=== PATIENT | male | born 1940 | race Caucasian/White ===

== ENCOUNTER 2018-08-15 12:10 | Inpatient (IN) | payer MEDICARE, OTHER ==
[~2018-08-15 12:10] MED LIST: ISOVUE-370 76%-LOCM 1 ML ONE
[2018-08-15 12:31] LABS: #Basophils 0.1 thou/uL (0.0-0.2); #Eosinphils 0.1 thou/uL (0.0-0.7); #Lymphocytes 3.4 thou/uL (1.20-3.40); #Monocytes 0.6 thou/uL (0.11-0.59); #Neutrophils 3.8 thou/uL (1.40-6.50); %Eosinophils 1.3 % (0.0-10.0); %Lymphocytes 42.1 % (21.0-51.0); %Monocytes 7.5 % (0.0-10.0); Hemoglobin 14.1 g/dL (14.0-18.0); Mean Corpuscular HGB CONC 32.3 g/dL (32.0-36.0); Mean Corpuscular Volume 95.7 fL (78.0-98.0); Mean Platelet Volume 7.2 fL (7.4-10.4); Platelet Count 235 thou/uL (130-400); RBC Distribution Width 12.6 % (11.5-14.5); Red Blood Cell (RBC) Count 4.56 mill/uL (4.70-6.10)
[2018-08-15 12:41] LABS: INR-International Normal Ratio 1.1; PTT 26.2 SEC (22.9-36.1); Prothrombin Time 14.1 SEC (12.0-14.7)
[2018-08-15 12:46] LABS: ALT (SGPT) 19 U/L (8-55); AST (SGOT) 18 U/L (5-34); Albumin 4.2 g/dL (3.4-4.8); Alkaline Phosphatase 88 U/L (40-150); Anion Gap 15 mmol/L (10-20); BUN (Urea Nitrogen) 18 mg/dL (8.4-25.7); Bilirubin, Total 0.4 mg/dL (0.2-1.2); CK (CPK) 80 U/L (30-200); Calc. Creatinine Clearance 0 mL/min (70-130); Calcium 9.3 mg/dL (7.8-10.44); Carbon Dioxide 21 mmol/L (23-31); Chloride 107 mmol/L (98-107); Estimated GFR-MDRD 77; Globulin 3.1 g/dL (2.4-3.5); Glucose 120 mg/dL (83-110); Potassium 4.5 mmol/L (3.5-5.1); Protein, Total 7.3 g/dL (5.8-8.1); Sodium 138 mmol/L (136-145)
[2018-08-15 12:47] LABS: Acetaminophen Less than 6.0 mcg/mL (10.0-30.0); Alcohol Less than 10 mg/dL (Less than 10); Salicylate Less than 8.0 mg/dL (15.0-30.0)
[2018-08-15 13:01] LABS: CKMB 1.5 ng/mL (0-6.6)
[2018-08-15 13:17] LABS: Bilirubin Negative (Negative); Blood, Urine Moderate (Negative); Clarity CLEAR (Clear); Glucose, Urine (Dipstick) Negative (Negative); Leukocyte Small (Negative); Nitrite Negative (Negative); Protein, Urine (Dipstick) Negative (Neg-Trace); Specific Gravity, Urine 1.018 (1.002-1.036); Urobilinogen 0.2 mg/dL (0.2-1.0); pH, Urine 6.5 (5.0-9.0)
[2018-08-15 13:19] LABS: Bacteria/HPF None Seen HPF (None Seen); Hyaline Casts/LPF 0-3 HYALINE CAST LPF (0-3 Hyaline); Pathc Cast-AUWi Flag 0.81 (0-2.49); Squamous Epithelial 0-3 HPF (0-3)
--- NOTE | 2018-08-15 13:22 | CT ---
CT BRAIN PERFORMED WITHOUT CONTRAST ENHANCEMENT: Date: 08/15/18 HISTORY: Slurred speech. FINDINGS: The ventricular and cisternal system is within normal limits. There are no signs of intracerebral hem orrhage or extra-axial fluid collections. The mastoid air cells and visualized sinuses are clear. IMPRESSION: No acute intracranial abnormalities. Findings telephoned to the emergency room at 1225 hours. CODE CR. POS: CHEY
[2018-08-15 13:26] LABS: Amphetamine Not Detected (NotDetected); Barbiturates Screen Not Detected (NotDetected); Benzodiazepine Screen Not Detected (NotDetected); Cocaine Metabolite Screen Not Detected (NotDetected); Medtox Control Line Valid? VALID (VALID); Medtox Reader # READER 4; Methadone Not Detected (NotDetected); Methamphetamine Not Detected (NotDetected); Opiate Screen Not Detected (NotDetected); Oxycodone Screen Not Detected (NotDetected); Phencyclidine (PCP) Not Detected (NotDetected); THC/Cannabinoid Screen Not Detected (NotDetected); Tricyclic Screen Not Detected (NotDetected)
[2018-08-15] MEDS ORDERED: Aspirin 325 MG TAB ONE (13:37)
--- NOTE | 2018-08-15 14:14 | CT ---
CTA HEAD WITH CONTRAST: Date 08/15/18 Multiple axial tomograms obtained through head following angio protocol with multiplanar reconstructi ons and 3D postprocessing. INDICATION: Stroke protocol. FINDINGS: The intracranial internal carotid arteries are patent. There are atherosclerotic changes with calcifi cations seen in the cavernous portion of both ICAs without evidence of significant stenosis apparent. M1 segments of both middle cerebrals appear patent and symmetric. M2 and M3 branches appear symmetri c. The basilar artery is patent. Posterior cerebral arteries are patent. IMPRESSION: Unremarkable CTA head. CTA NECK: Multiple axial tomograms obtained through neck following angio protocol with multiplanar reconstructi on and 3D postprocessing. HISTORY: Stroke. FINDINGS: Origin of arch vessels unremarkable. Common carotid artery is unremarkable. Atherosclerotic changes are seen at both bulbs and both proximal ICAs; however, no significant stenos is identified in either ICA. Vertebral arteries are patent and symmetric. IMPRESSION: Mild atherosclerotic changes seen in both carotid bulbs. No significant stenosis identified. POS: OFF
[2018-08-15] MEDS ORDERED: Bisacodyl 5 MG TAB PO PRN (15:14)
[2018-08-15 15:32] LABS: Troponin I 0.018 ng/mL (< 0.028)
[2018-08-15 16:00] VITALS: BMI 32.1
--- NOTE | 2018-08-15 16:01 | HP ---
PRIMARY CARE PROVIDER: LATONYA Ford-C CHIEF COMPLAINT: Difficulty speaking. HISTORY OF PRESENT ILLNESS: Mr. Bo is a pleasant 78-year-old gentleman, who was seen at [facility] on August 15, 2018. He was fishing around 10:30 a.m. today. After that, he went into his house. His noticed that he was drooling. He was unable to speak. Since then, he has been able to say few words, but is still having difficulty speaking. He is answering questions by nodding or shaking head. He reports that he knows what he wants to say, but he is having difficulty saying it. He denies any chest pain or shortness of breath. He denies any vision changes. He denies any nausea or vomiting. REVIEW OF SYSTEMS: All other systems reviewed and found to be negative. PAST MEDICAL HISTORY: Hypertension and biliary pancreatitis. PAST SURGICAL HISTORY: Cholecystectomy. FAMILY HISTORY: No family history of cerebrovascular accident. SOCIAL HISTORY: The patient denies tobacco use, alcohol use, or recreational drug use. CODE STATUS: I discussed his code status with both the patient and . The patient is full code. ALLERGIES: NO KNOWN DRUG ALLERGIES. CURRENT MEDICATIONS: 1. Lisinopril/hydrochlorothiazide 20/25 mg daily. 2. Aspirin 325 mg daily. PHYSICAL EXAMINATION: GENERAL: On examination, Mr. Bo is awake and alert, not in acute distress. VITAL SIGNS: Blood pressure is 174/75, pulse 78, respiratory rate 25, and oxygen saturation 97% on room air. He is afebrile. EYES: No scleral icterus, no conjunctival pallor. ENT: Moist mucosal membranes. No oropharyngeal erythema or exudates. NECK: Supple, nontender, trachea is midline. RESPIRATORY: Accessory muscles of breathing are not active. Movements are symmetric bilaterally. Lungs are clear to auscultation without wheeze, rhonchi, or crepitations. CARDIOVASCULAR: S1 and S2 are heard, regular. Peripheral pulses palpable. No carotid bruit. No pericardial rub. NEUROLOGIC: The patient has expressive aphasia. Otherwise, cranial nerves 2 through 12 are intact. No focal motor or sensory deficits. Power is 5/5 in all 4 extremities. Deep tendon reflexes are 2+, plantars downgoing bilaterally. MUSCULOSKELETAL: Power is 5/5 in all 4 extremities. SKIN: No rashes or subcutaneous nodules. LYMPHATIC: No cervical lymphadenopathy. PSYCHIATRIC: Normal mood, normal affect, the patient is oriented to person, place, and time. LABORATORY DATA: Mr. Bo' labs and investigations were reviewed. A 12-lead electrocardiogram shows normal sinus rhythm with premature supraventricular complexes. CT scan of the brain did not show any acute intracranial abnormalities. CT angiography of the neck and [place] of [place] showed mild atherosclerotic changes in both carotid bulbs, no significant stenosis. CTA head was unremarkable. He has unremarkable CBC, INR 1.1, normal sodium, normal potassium, troponin I initially elevated at 0.093, subsequently trending down into normal range at 0.018, unremarkable liver profile, normal creatinine, urinalysis positive for small amount of leukocyte esterase and moderate amount of blood and negative urine drug screen. ASSESSMENT AND PLAN: Mr. Bo is a pleasant 78-year-old gentleman, who was seen at [facility] on August 15, 2018. His problem list includes: 1. Expressive aphasia: Mr. Bo is presenting with expressive aphasia, most likely secondary to ischemic cerebrovascular accident. He will be admitted to the hospital for further management. We will check 2D echocardiogram and MRI of the brain. We will consult Neurology Service. He is already on aspirin, we will add Plavix and await Neurology Service opinion. 2. Hypertension: We will resume home medications, monitor vital signs and titrate antihypertensives as needed. 3. Elevated troponin I: The patient's troponin was initially in the indeterminate range, subsequently trended into normal range. The patient denies having any chest pain. We will monitor on telemetry. Many thanks for allowing me to participate in your patient's care. Please feel free to contact me with any questions or concerns. LEVEL OF RISK: Moderate. LEVEL OF COMPLEXITY: Moderate. Job ID: [id number]
--- NOTE | 2018-08-15 16:51 | MRI ---
MRI BRAIN WITHOUT CONTRAST: HISTORY: Slurred speech CORRELATION: CT scan from 08/15/2018. FINDINGS: A small focus of restricted diffusion is seen in the left insular cortex There are multiple foci of T 2 prolongation in the periventricular white matter, consistent with chronic small vessel ischemic disease. The ventricular size is appropriate and the basilar cisterns are patent. No evidence of hemorrhage, midline shift or abnormal extra-axial fluid collections is seen. The visualized paranasal sinuses and mastoid air cells are well-aerated. IMPRESSION: Small acute left insular infarction.
[2018-08-15 18:44] LABS: Troponin I 0.016 ng/mL (< 0.028)
[2018-08-15] MEDS: Atorvastatin Calcium 40 MG TAB PO SCH (20:11)
[2018-08-16 06:01] LABS: Anion Gap 13 mmol/L (10-20); BUN (Urea Nitrogen) 12 mg/dL (8.4-25.7); Calc. Creatinine Clearance 91 mL/min (70-130); Calcium 9.1 mg/dL (7.8-10.44); Carbon Dioxide 20 mmol/L (23-31); Cardiac Risk 5.6 (Less than 4.5); Chloride 108 mmol/L (98-107); Cholesterol 174 mg/dl (< 200 Desired); Estimated GFR-MDRD 83; Glucose 104 mg/dL (83-110); HDL Cholesterol 31 mg/dL (>60 Neg Risk); Potassium 4.3 mmol/L (3.5-5.1); Sodium 137 mmol/L (136-145)
[2018-08-16 06:25] LABS: Band 2 % (5-11); Eosinophils 1 % (0-10); Hemoglobin 14.3 g/dL (14.0-18.0); Lymphocytes 26 % (21-51); MDiff Complete? YES; Mean Corpuscular HGB CONC 32.9 g/dL (32.0-36.0); Mean Corpuscular Hemoglobin 32.1 pg (27.0-31.0); Mean Corpuscular Volume 97.4 fL (78.0-98.0); Mean Platelet Volume 7.5 fL (7.4-10.4); Monocytes 8 % (0-10); Neutrophil 61 % (42-75); Platelet Count 233 thou/uL (130-400); Platelet Morphology Comment Appears Adequate; RBC Distribution Width 12.6 % (11.5-14.5); Reactive Lymphocytes 1 % (0-10); Red Blood Cell (RBC) Count 4.46 mill/uL (4.70-6.10); White Blood Cell (WBC) Count 10.5 thou/uL (4.8-10.8)
[2018-08-16 07:24] LABS: LDL Cholesterol, Calculated 92 mg/dL; Triglycerides 256 mg/dL (Less than 150)
[2018-08-16] MEDS: Enoxaparin Sodium 40 MG/0.4 ML SYRINGE SC SCH (09:13)
[2018-08-16] MEDS: Clopidogrel Bisulfate 75 MG TAB PO SCH (09:14)
[2018-08-16] MEDS: Aspirin 325 mg Enteric Coated Tablet PO SCH (09:14)
--- NOTE | 2018-08-16 12:18 | PDOC.PN ---
- Subjective Encounter Start Date: 08/16/18 Encounter Start Time: 07:00 Pt seen for followup re: ischemic CVA. Still has difficulty speaking. - Objective Resuscitation Status - Order Detail: 08/15/18 15:14 Resuscitation Status Routine Resuscitation Status: FULL: Full Resuscitation Discussed with: patient and DANGELO Reviewed: Yes Vital Signs & Weight: Vital Signs (12 hours) Temp Pulse Resp BP Pulse Ox 08/16/18 08:00 98 08/16/18 07:56 99 F 62 20 168/77 H 98 08/16/18 04:00 98.5 F 76 18 173/79 H 97 Weight Weight 205 lb I&O: 08/15/18 08/16/18 08/17/18 06:59 06:59 06:59 Intake Total 860 Balance 860 Result Diagrams: 08/16/18 05:18 08/16/18 05:18 Additional Labs: Accuchecks 08/15/18 12:16 POC Glucose 130 H EKG Reviewed by me: Yes (Tele: NSR) Phys Exam - Physical Examination Obese HEENT: moist MMs, sclera anicteric, oral pharynx no lesions, 2+ tonsils Neck: no nodes, no JVD, supple, full ROM Respiratory: clear to auscultation bilateral Cardiovascular: RRR, no rub S1, S2 Gastrointestinal: soft, non-tender, no distention, positive bowel sounds Neurological: moves all 4 limbs expressive aphasia Psychiatric: normal affect Dx/Plan (1) Ischemic cerebrovascular accident (CVA) Code(s): I63.9 - CEREBRAL INFARCTION, UNSPECIFIED Status: Acute Comment: continue aspirin, Plavix and statin (2) HTN (hypertension) Code(s): I10 - ESSENTIAL (PRIMARY) HYPERTENSION Status: Chronic Comment: monitor vital signs and titrate antihypertensives as needed - Plan * . Review of Systems - Review of Systems Constitutional: negative: fever, chills, sweats, weakness, malaise Respiratory: negative: Cough, Shortness of Breath, SOB with Excertion, Pleuritic Pain, Wheezing Cardiovascular: negative: chest pain, palpitations, orthopnea, paroxysmal nocturnal dyspnea, edema, light headedness Gastrointestinal: negative: Nausea, Vomiting, Abdominal Pain, Diarrhea, Constipation, Melena, Hematochezia Neurological: Change in Speech. negative: Weakness, Numbness, Incoordination, Confusion, Seizures - Medications/Allergies Allergies/Adverse Reactions: Allergies Allergy/AdvReac Type Severity Reaction Status Date / Time No Known Drug Allergies Allergy Verified 08/15/18 15:57 Medications: Current Medications Aspirin (Ecotrin) 325 mg PO DAILY [facility] Last Admin: 08/16/18 09:14 Dose: 325 mg Atorvastatin Calcium (Lipitor) 40 mg PO HS [facility] Last Admin: 08/15/18 20:11 Dose: 40 mg Bisacodyl (Dulcolax) 10 mg PO DAILYPRN PRN PRN Reason: Constipation Clopidogrel Bisulfate (Plavix) 75 mg PO DAILY [facility] Last Admin: 08/16/18 09:14 Dose: 75 mg Enoxaparin Sodium (Lovenox) 40 mg SC 0900 [facility] Last Admin: 08/16/18 09:13 Dose: 40 mg Sodium Chloride (Flush - Normal Saline) 10 ml IVF PRN PRN PRN Reason: Saline Flush
[2018-08-16] MEDS: Acetaminophen 325 MG TAB PO PRN (18:54)
[2018-08-16] MEDS: Atorvastatin Calcium 40 MG TAB PO SCH (21:12)
--- NOTE | 2018-08-16 23:41 | CON ---
DATE OF CONSULTATION: CHIEF COMPLAINT: Aphasia. HISTORY OF PRESENT ILLNESS: The patient and his gave me medical history. The patient was fishing at 10:00 a.m. yesterday. He went into the house drooling. He could not talk. He had no weakness, numbness, or vision symptoms and he was brought immediately to the hospital by his family. The patient was found to have small left insular infarct. PREVIOUS MEDICAL HISTORY: The patient has hypertension and biliary pancreatitis for which he had gallbladder removals. MEDICATIONS: Current medicines at home, he takes lisinopril and aspirin on a daily basis. PREVIOUS SURGICAL HISTORY: He had cholecystectomy. FAMILY HISTORY: He has 2 brothers with coronary artery disease; three sisters, one sister has nonalcoholic cirrhosis of liver, one sister from brain cancer. His father at 75 from lung cancer. Mom at 82 from pancreatic cancer. SOCIAL HISTORY: He never smokes. He has occasionally been drinking a beer or two. He is a retired construction project manager. REVIEW OF SYSTEMS: Unable to obtain due to aphasia. CURRENT MEDICATIONS: Noted per chart. LABORATORY DATA: White count 10.5, hemoglobin 14.3, hematocrit 43.5, platelet count 233. Chemistry; sodium 137, potassium 4.3, chloride 108, BUN 12, creatinine 0.89, triglyceride 256, cholesterol 174, LDL 92, HDL 31,. Urine blood is moderate. Urine tox screen is negative." PTT 26.2, INR 1.1. His MRI of the brain as noted. He has a small left insular infarct which is acute. CT angiogram of the head and neck was also reviewed and there was mild atherosclerotic changes in both carotid bulbs without any significant stenosis. Echocardiogram was also completed, which was within normal limits. PHYSICAL EXAMINATION: VITAL SIGNS: Blood pressure was 177/75, pulse 59, temperature 98. GENERAL APPEARANCE: Well-built, well-nourished, very pleasant gentleman who is unable to talk. He has difficulty even with phonation and has hoarse voice and he has both the expressive and receptive aphasia. CHEST: Clear vesicular breathing. CARDIOVASCULAR: S1, S2 heard. No murmurs. ABDOMEN: Soft and nontender. No organomegaly noted. NEUROLOGIC: Motor; bulk normal, tone normal. Strength 5/5 in upper and lower extremities. Muscle groups tested are iliopsoas, hamstrings, quadriceps, ankle dorsiflexion, plantar flexion, deltoid, biceps, triceps, wrist extension and flexion, and finger extension and flexion. Deep tendon reflexes 2+ throughout. Cranial nerve examination; normal extraocular movements. Pupils are 3-4 mm, reactive. Tongue midline. No atrophy noted. Normal sensation of face bilaterally. Normal hearing bilaterally. He has facial droop on the right side. Sensory; unreliable due to difficulty with his receptive aphasia as well. Cerebellar; normal [id number] and [id number]. IMPRESSION: The patient is a 78-year-old man with hypertension and family history of cancer and hypercholesterolemia based on our lab workup. He had sudden onset aphasia yesterday without any vaso-occlusive disease and he did not receive any tPA due to presentation and also lack of any vascular occlusion. His examination shows both expressive and receptive aphasia and he has intact strength and sensory and cerebellar exam. At this time, his diagnosis is most consistent with acute stroke, likely small-vessel ischemic disease in nature because of lack of any abnormal findings in the carotid arteries or on echocardiogram. RECOMMENDATIONS: Please add Plavix to his treatment regimen along with aspirin and continue statin for stroke prophylaxis. Neurology will see him as needed. He needs speech therapy consultation plus plans for rehab. Job ID: [id number]
[2018-08-17] MEDS: Clopidogrel Bisulfate 75 MG TAB PO SCH (09:05)
[2018-08-17] MEDS: Aspirin 325 mg Enteric Coated Tablet PO SCH (09:06)
[2018-08-17] MEDS: Enoxaparin Sodium 40 MG/0.4 ML SYRINGE SC SCH (09:07)
--- NOTE | 2018-08-17 11:51 | RAD ---
XR Ba Swallow W/Speech Therap History: [ Dysphagia, unspecified R13.10 Feeding difficulties R63.3] Comparison: None. Findings: Multiple consistencies contrast was administered to the patient via the speech pathologist. There is deep penetration with multiple contrast consistencies. Impression: Deep penetration with multiple contrast consistencies. Please see speech pathologist's re port for details of the exam
[2018-08-17] MEDS: Acetaminophen 325 MG TAB PO PRN (13:51)
[2018-08-17] MEDS: Diltiazem 125 MG in Sodium Chloride 0.9% 100 ML IVPB SCH (13:52)
--- NOTE | 2018-08-17 15:14 | PDOC.PN ---
- Subjective Encounter Start Date: 08/17/18 Encounter Start Time: 07:00 Pt seen for followup re: ischemic CVA. Occasionally able to say short sentences with difficulty. - Objective Resuscitation Status - Order Detail: 08/15/18 15:14 Resuscitation Status Routine Resuscitation Status: FULL: Full Resuscitation Discussed with: patient and DANGELO Reviewed: Yes Vital Signs & Weight: Vital Signs (12 hours) Temp Pulse Resp BP BP Pulse Ox 08/17/18 13:05 112 H 18 142/87 H 97 08/17/18 11:34 98.1 F 61 16 160/76 H 96 08/17/18 08:59 94 L 08/17/18 07:49 98 F 62 16 165/92 H 94 L 08/17/18 04:00 97.5 F L 64 18 146/70 H 96 Weight Admit Weight 205 lb Weight 205 lb I&O: 08/16/18 08/17/18 08/18/18 06:59 06:59 06:59 Intake Total 860 1160 Balance 860 1160 Result Diagrams: 08/16/18 05:18 08/16/18 05:18 EKG Reviewed by me: Yes (Tele: NSR) Phys Exam - Physical Examination Obese HEENT: moist MMs Neck: supple Respiratory: clear to auscultation bilateral Cardiovascular: RRR Gastrointestinal: soft Neurological: moves all 4 limbs Psychiatric: normal affect Dx/Plan (1) Ischemic cerebrovascular accident (CVA) Code(s): I63.9 - CEREBRAL INFARCTION, UNSPECIFIED Status: Acute Comment: on aspirin, Plavix and statin (2) Aphasia due to acute cerebrovascular accident (CVA) Code(s): I63.9 - CEREBRAL INFARCTION, UNSPECIFIED; R47.01 - APHASIA Status: Acute Comment: for outpt speech therapy (3) HTN (hypertension) Code(s): I10 - ESSENTIAL (PRIMARY) HYPERTENSION Status: Chronic Comment: Improved control - Plan * . Review of Systems - Review of Systems Constitutional: negative: fever, chills, sweats, weakness, malaise Cardiovascular: negative: chest pain, palpitations, orthopnea, paroxysmal nocturnal dyspnea, edema, light headedness Neurological: Change in Speech - Medications/Allergies Allergies/Adverse Reactions: Allergies Allergy/AdvReac Type Severity Reaction Status Date / Time No Known Drug Allergies Allergy Verified 08/15/18 15:57 Medications: Current Medications Acetaminophen (Tylenol) 650 mg PO Q6H PRN PRN Reason: Headache/Fever or Pain Last Admin: 08/17/18 13:51 Dose: 650 mg Aspirin (Ecotrin) 325 mg PO DAILY [facility] Last Admin: 08/17/18 09:06 Dose: 325 mg Atorvastatin Calcium (Lipitor) 40 mg PO HS [facility] Last Admin: 08/16/18 21:12 Dose: 40 mg Bisacodyl (Dulcolax) 10 mg PO DAILYPRN PRN PRN Reason: Constipation Clopidogrel Bisulfate (Plavix) 75 mg PO DAILY [facility] Last Admin: 08/17/18 09:05 Dose: 75 mg Enoxaparin Sodium (Lovenox) 40 mg SC 0900 [facility] Last Admin: 08/17/18 09:07 Dose: 40 mg Diltiazem HCl 125 mg/ Sodium (Chloride) 125 mls @ 5 mls/hr IVPB INF [facility] Last Admin: 08/17/18 13:52 Dose: 125 mls Sodium Chloride (Flush - Normal Saline) 10 ml IVF PRN PRN PRN Reason: Saline Flush Last Admin: 08/16/18 21:12 Dose: 10 ml
--- NOTE | 2018-08-17 17:28 | CON ---
DATE OF CONSULTATION: REASON FOR CONSULTATION: Recent CVA and atrial fibrillation. HISTORY OF PRESENT ILLNESS: Mr. Bo is a 78-year-old gentleman, who recently presented with recent stroke. He has had aphasia. He was found to be in normal sinus rhythm and developed atrial fibrillation with RVR. He is currently asymptomatic. The patient has no previous history of underlying coronary artery disease. He has no history of palpitations, tachycardia, bradycardia, syncope, or presyncope. PAST MEDICAL HISTORY: Hypertension, previous biliary pancreatitis, and cholecystectomy. FAMILY HISTORY: Positive for CAD. SOCIAL HISTORY: No current tobacco or alcohol use. HOME MEDICATIONS: Per chart, have been reviewed. REVIEW OF SYSTEMS: A 10-point review of systems is reviewed and as above, otherwise negative. PHYSICAL EXAMINATION: GENERAL: Patient is a pleasant male, who is in no acute distress. The patient appears their stated age. VITAL SIGNS: Blood pressure 149/77, pulse 94, temperature afebrile. NEUROLOGIC: The patient is alert and oriented x3 with no focal neurologic deficits. HEENT: Sclerae without icterus. Mouth has moist mucous membranes with normal pallor. NECK: No JVD. Carotid upstroke brisk. No bruits bilaterally. LUNGS: Clear to auscultation with unlabored respirations. BACK: No scoliosis or kyphosis. CARDIAC: Irregularly irregular with normal S1 and S2. No S3 or S4 noted. No significant rubs, murmurs, thrills, or gallops noted throughout the precordium. PMI is not displaced. There is no parasternal heave. He is currently on IV Cardizem ABDOMEN: Soft, nontender, nondistended. No peritoneal signs present. No hepatosplenomegaly. No abnormal striae. EXTREMITIES: 2+ femoral and 2+ dorsalis pedis pulses. No cyanosis, clubbing, or edema. SKIN: No gross abnormalities. PERTINENT LABORATORY DATA: Hemoglobin 14.3. Creatinine 0.89. Peak troponin 0.093. Echo with doppler, LVEF 50% to 55%. IMPRESSION: 1. Recent stroke. 2. New onset atrial fibrillation with rapid ventricular response. RECOMMENDATIONS: Mr. Bo likely has paroxysmal atrial fibrillation with his first presentation of atrial fibrillation with a stroke. At this point, recommend anticoagulation therapy. From my standpoint, we would not require aspirin or Plavix. We will leave it to the discretion of Neurology. We would recommend Eliquis at 5 mg one p.o. b.i.d. We will also recommend p.o. Cardizem. We will start 60 mg one p.o. q.6 hours. We will try and titrate down his IV Cardizem. Job ID: [id number]
[2018-08-17] MEDS: Atorvastatin Calcium 40 MG TAB PO SCH (22:39)
--- NOTE | 2018-08-18 00:19 | PDOC.CTH ---
Cardiology Progress Note - Subjective Doing better overall. tolerating PO CCB. - Objective Vital Signs Temp Pulse Resp BP BP Pulse Ox 08/18/18 00:00 97.6 F 99 18 138/69 95 08/17/18 20:00 97.9 F 106 H 16 130/70 95 08/17/18 15:23 98.3 F 94 16 149/77 H 95 08/17/18 13:05 112 H 18 142/87 H 97 Admit Weight 205 lb Weight 205 lb 08/16/18 08/17/18 08/18/18 06:59 06:59 06:59 Intake Total 860 1160 500 Balance 860 1160 500 - Physical Examination General/Neuro: alert & oriented x3, NAD Neck: no JVD present Lungs: unlabored respirations Heart: other: (irr) Abdomen: NT/ND, soft Extremities: + femoral B - Telemetry Telemetry Rhythm: irr - Labs Result Diagrams: 08/18/18 16:12 08/18/18 16:12 Troponin/CKMB CK-MB (CK-2) 1.5 ng/mL (0-6.6) 08/15/18 12:13 Troponin I 0.016 ng/mL (< 0.028) 08/15/18 18:13 - Assessment/Plan Afib CVA INcrease POP CCB and decrease IV CCB Add IV digoxin ACT
[2018-08-18] MEDS: Apixaban 5 MG TAB PO SCH ×2 (09:15→20:56)
[2018-08-18] MEDS: Diltiazem 125 MG in Sodium Chloride 0.9% 100 ML IVPB SCH (12:31)
--- NOTE | 2018-08-18 13:15 | PDOC.PN ---
- Subjective Encounter Start Date: 08/18/18 Encounter Start Time: 07:00 Pt seen for followup re: ischemic CVA. Has a. fib which started yesterday. Speaking better today. - Objective Resuscitation Status - Order Detail: 08/15/18 15:14 Resuscitation Status Routine Resuscitation Status: FULL: Full Resuscitation Discussed with: patient and DANGELO Reviewed: Yes Vital Signs & Weight: Vital Signs (12 hours) Temp Pulse Resp BP Pulse Ox 08/18/18 11:30 97.5 F L 93 16 124/60 98 08/18/18 08:33 98 08/18/18 07:32 97.9 F 78 16 165/69 H 95 08/18/18 04:00 97.8 F 84 18 88/42 L 97 Weight Admit Weight 205 lb Weight 205 lb I&O: 08/17/18 08/18/18 08/19/18 06:59 06:59 06:59 Intake Total 1160 740 Balance 1160 740 Result Diagrams: 08/16/18 05:18 08/16/18 05:18 EKG Reviewed by me: Yes (Tele: [place] re[place]) Phys Exam - Physical Examination Constitutional: NAD HEENT: moist MMs Neck: supple Respiratory: clear to auscultation bilateral Cardiovascular: irregular Gastrointestinal: soft Neurological: moves all 4 limbs Psychiatric: normal affect Dx/Plan (1) Ischemic cerebrovascular accident (CVA) Code(s): I63.9 - CEREBRAL INFARCTION, UNSPECIFIED Status: Acute Comment: started on apixaban, continue statin (2) Afib Code(s): I48.91 - UNSPECIFIED ATRIAL FIBRILLATION Status: Acute Comment: started on apixaban. Trying to wean off diltiazem drip (3) Aphasia due to acute cerebrovascular accident (CVA) Code(s): I63.9 - CEREBRAL INFARCTION, UNSPECIFIED; R47.01 - APHASIA Status: Acute Comment: for outpt speech therapy (4) HTN (hypertension) Code(s): I10 - ESSENTIAL (PRIMARY) HYPERTENSION Status: Chronic Comment: controlled - Plan * . Review of Systems - Review of Systems Cardiovascular: negative: chest pain, palpitations, orthopnea, paroxysmal nocturnal dyspnea, edema, light headedness Skin: negative: Rash, Lesions, Samir, Bruising Neurological: Change in Speech - Medications/Allergies Allergies/Adverse Reactions: Allergies Allergy/AdvReac Type Severity Reaction Status Date / Time No Known Drug Allergies Allergy Verified 08/15/18 15:57 Medications: Current Medications Acetaminophen (Tylenol) 650 mg PO Q6H PRN PRN Reason: Headache/Fever or Pain Last Admin: 08/17/18 13:51 Dose: 650 mg Apixaban (Eliquis) 5 mg PO BID [facility]EN Last Admin: 08/18/18 09:15 Dose: 5 mg Atorvastatin Calcium (Lipitor) 40 mg PO HS [facility] Last Admin: 08/17/18 22:39 Dose: 40 mg Bisacodyl (Dulcolax) 10 mg PO DAILYPRN PRN PRN Reason: Constipation Diltiazem HCl (Cardizem) 90 mg PO ACHS [facility]EN Last Admin: 08/18/18 11:54 Dose: 90 mg Diltiazem HCl 125 mg/ Sodium (Chloride) 125 mls @ 5 mls/hr IVPB INF [facility] Stop: 08/18/18 16:00 Last Admin: 08/18/18 12:31 Dose: 125 mls Sodium Chloride (Flush - Normal Saline) 10 ml IVF PRN PRN PRN Reason: Saline Flush Last Admin: 08/16/18 21:12 Dose: 10 ml
[2018-08-18 16:35] LABS: Hemoglobin 14.9 g/dL (14.0-18.0); Platelet Count 263 thou/uL (130-400)
[2018-08-18] MEDS: Atorvastatin Calcium 40 MG TAB PO SCH (20:56)
--- NOTE | 2018-08-19 06:21 | PDOC.CTH ---
Cardiology Progress Note - Subjective Doing better. In SR. Speech improving - Objective Vital Signs Temp Pulse Resp BP Pulse Ox 08/19/18 03:59 97.5 F L 55 L 18 138/63 95 08/19/18 00:00 97.9 F 57 L 18 126/62 96 08/18/18 20:00 98.1 F 59 L 18 149/70 H 97 Admit Weight 205 lb Weight 205 lb 08/17/18 08/18/18 08/19/18 06:59 06:59 06:59 Intake Total 1160 740 500 Balance 1160 740 500 - Physical Examination General/Neuro: alert & oriented x3, NAD Neck: no JVD present Lungs: unlabored respirations Heart: PMI normal, RRR Abdomen: NT/ND, soft Extremities: + femoral B - Telemetry Telemetry Rhythm: sr - Labs Result Diagrams: 08/18/18 16:12 08/18/18 16:12 Troponin/CKMB CK-MB (CK-2) 1.5 ng/mL (0-6.6) 08/15/18 12:13 Troponin I 0.016 ng/mL (< 0.028) 08/15/18 18:13 - Assessment/Plan Afib CVA IC CCB has been d/arelis. Cahnge CCB to long acting On ACT Add flecainide Recommend outpatinet fu I will be out of the office till August 23. PLease re-consult if questions arise
[2018-08-19] MEDS ORDERED: Diltiazem HCl CD 300 mg Capsule PO SCH (09:00)
[2018-08-19] MEDS ORDERED: Prevnar 13-Val Conj/PF 0.5 ML SYRINGE IM ONE (09:00)
[2018-08-19] MEDS ORDERED: Flecainide 50 MG TAB PO SCH (09:00)
[2018-08-19] MEDS: Apixaban 5 MG TAB PO SCH (09:08)
[2018-08-19 15:36] VITALS: BP 168/75; TEMP 98.3
--- NOTE | 2018-08-20 02:23 | DIS ---
DATE OF ADMISSION: 08/15/2018 DATE OF DISCHARGE: 08/19/2018 PRIMARY CARE PROVIDER: SUZI Ford. DISCHARGE DIAGNOSES: 1. Ischemic cerebrovascular accident. 2. Aphasia. 3. Atrial fibrillation, new onset. CONDITION OF PATIENT ON THE DAY OF DISCHARGE: Stable. I assessed Mr. Bo on the day of discharge. He denies any chest pain or shortness of breath. He is able to speak short sentences. Vital signs are stable. S1 and S2 are heard, regular. Lungs are clear to auscultation bilaterally. CONSULTATIONS DURING THIS HOSPITALIZATION: 1. Neurology, Dr. Combs. 2. Cardiology, Dr. Antonio. DISCHARGE MEDICATIONS: 1. Lisinopril/hydrochlorothiazide 20/25 mg daily. 2. Flecainide 50 mg 2 times a day. 3. Apixaban 5 mg two times a day. 4. Lipitor 40 mg at bedtime. 5. Cardizem CD 180 mg daily. HOSPITAL COURSE: Mr. Bo is a pleasant 78-year-old gentleman, who was admitted to [facility] on August 15, 2018, for ischemic cerebrovascular accident causing aphasia. MRI of the brain done on August 15 showed a small acute left insular infarction. He was seen by [facility]. He is recommended home health for speech therapy. 2D echocardiogram was technically inadequate. Left ventricular ejection fraction was estimated at 50% to 55%. He had impaired relaxation compatible with diastolic dysfunction. No thrombus was noted in the cardiac chambers. He continued to improve in terms of aphasia. He was seen by Neurology Service. He was initially treated with aspirin and Plavix. However, he was also found to have new onset atrial fibrillation. He was seen by Cardiology Service. He has been started on apixaban, flecainide, as well as Cardizem. Please note that he was also treated with Cardizem drip during this hospitalization. He cardioverted to normal sinus rhythm on August 18 and continued to be in normal sinus rhythm. Fasting lipid profile during this hospitalization showed triglycerides 256, cholesterol 174, LDL cholesterol 92, and HDL cholesterol 31. Many thanks for allowing me to participate in your patient's care. Please feel free to contact me with any questions or concerns. DISCHARGE DESTINATION: Home. TIME SPENT: Total amount of time spent coordinating this discharge: 33 minutes. Job ID: [id number]
== END 2018-08-19 17:10 | disposition home or self-care (01) | DRG 66 ==
LOC: ERS 12:10 → 2SE 13:30
PROVIDERS: ADMIT Internal Medicine; ATTEND Internal Medicine
DX: I63.9 Cerebral infarction, unspecified (principal); I10 Essential (primary) hypertension; R47.01 Aphasia; R29.810 Facial weakness; E78.00 Pure hypercholesterolemia, unspecified; I48.0 Paroxysmal atrial fibrillation; R29.702 NIHSS score 2; Z79.82 Long term (current) use of aspirin; Z79.899 Other long term (current) drug therapy; Z90.49 Acquired absence of other specified parts of digestive tract; Z87.19 Personal history of other diseases of the digestive system
CPT/HCPCS: 36415; 36416; 70450; 70496; 70498; 70551; 74230; 80048; 80053; 80061; 80306; 80307; 81003; 81015; 82550; 82553; 82565; 84484; 85014; 85018; 85025; 85049; 90471; 90670; 93005; 93306; G0009; J1650; J3490; Q9966

== ENCOUNTER 2018-09-09 10:37 | Outpatient (CLI) | payer MEDICARE, OTHER ==
--- NOTE | 2018-09-09 13:46 | RAD ---
Esophagram HISTORY: Dysphagia. FINDINGS: Single column barium evaluation shows decrease in primary and secondary peristalsis and pro minent nonpropulsive tertiary type contractions. Narrowing of the GE junction is apparent with very small hiatal hernia. Moderate amount of gastroesophageal reflux. A 12 mm barium tablet lodged at the GE junction at the level of the lower esophageal sphincter and to 35 minutes to diffuse all to a size that was passable. No mucosal masses are apparent. Fluoroscopy time 1.9 minutes. IMPRESSION: Significant Schatzki's ring, with holdup of a 12 mm barium tablet for 35 minutes. Moderate gastroesophageal reflux. Presbyesophagus.
== END 2018-09-09 10:38 | disposition home or self-care (01) ==
LOC: RAD 10:37
PROVIDERS: ATTEND Nurse Practitioner Family
DX: R13.10 Dysphagia, unspecified (principal); I63.9 Cerebral infarction, unspecified; R47.01 Aphasia; K22.2 Esophageal obstruction; K21.9 Gastro-esophageal reflux disease without esophagitis; K22.8 Other specified diseases of esophagus
CPT/HCPCS: 74220

== ENCOUNTER 2018-10-20 09:41 | Outpatient (CLI) | payer MEDICARE, OTHER ==
--- NOTE | 2018-10-20 12:18 | RAD ---
MODIFIED BARIUM SWALLOW: HISTORY: Dysphagia, unspecified. Feeding difficulties. EXPOSURE: 2.1 minutes. 12.05 mGy. FINDINGS: In the presence of speech pathologist, the patient was administered thin liquid, nectar thick, mechan ical soft, and solid consistencies. FINDINGS: There is penetration with thin liquid and mechanical soft consistencies. There is some mass effect u dolores the posterior aspect of the aerodigestive tract secondary to osteophytes at C2, C3, and C4. Ther e is mass effect upon the posterior aspect of the upper cervical esophagus due to osteophyte at C5. IMPRESSION: Penetration with thin liquid and mechanical soft consistencies. Please refer to speech pathology rep ort for feeding recommendations. POS: OFF
== END 2018-10-20 09:42 | disposition home or self-care (01) ==
LOC: RAD 09:41
PROVIDERS: ATTEND Nurse Practitioner Family
DX: I69.991 Dysphagia following unspecified cerebrovascular disease (principal); R47.01 Aphasia
CPT/HCPCS: 74230

== ENCOUNTER 2019-04-09 10:30 | Outpatient (CLI) | payer MEDICARE, OTHER ==
--- NOTE | 2019-04-09 11:45 | CT ---
EXAM: CT Abdomen Pelvis W WO con PROVIDED CLINICAL HISTORY: Gross hematuria COMPARISON: None FINDINGS: There is pleural plaque formation seen involving the visualized portions of the left inferior chest w ith associated pleural-based calcification. The visualized lung bases appear otherwise clear. There is a 1 cm nonobstructing superior pole left renal calculus. There is a 1 cm left renal pelvic c alculus. There is evidence for urothelial edema. There is no evidence for hydronephrosis. A tiny inferior pole calculus is also present on the left. No right renal calculi are evident. No ureteral o r bladder calculi are evident. The delayed images demonstrate no evidence for filling defect involving the renal collecting systems, opacified ureters or urinary bladder. Areas of noncircumscribed diminished attenuation involving the lateral margins of the junctions of the middle and lower thirds of each kidney which may reflect sequela of prior insult. The prostate gland appears enlarged. The liver, spleen, pancreas and adrenal glands appear unremarkable. Changes of prior cholecystectomy are seen. There is a small hiatal hernia. There is no bowel dilatation, inflammatory fat stranding, free fluid or lymph node enlargement appare nt. Vascular calcifications are noted. Degenerative changes are seen involving the spine. 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 No lytic or blastic lesions are seen. IMPRESSION: 1. Left renal calculi as described. 2. Left hemithoracic pleural plaques with associated calcification presumably reflecting either asbes tos-related pleural disease or sequela of prior hemothorax. 3. Other chronic findings as above.
== END 2019-04-09 10:31 | disposition home or self-care (01) ==
LOC: BICCT 10:30
PROVIDERS: ATTEND Urology
DX: R31.0 Gross hematuria (principal); N20.0 Calculus of kidney; J92.9 Pleural plaque without asbestos; I70.90 Unspecified atherosclerosis; R60.0 Localized edema; M53.3 Sacrococcygeal disorders, not elsewhere classified; M47.819 Spondylosis without myelopathy or radiculopathy, site unspecified
CPT/HCPCS: 74178; 82565

== ENCOUNTER 2022-10-23 09:46 | Outpatient (CLI) | payer MEDICARE, OTHER ==
[2022-10-23] MEDS ORDERED: Iopamidol 370 76% 100 ML VIAL ONE (12:48)
== END 2022-10-23 09:47 | disposition home or self-care (01) ==
LOC: BICCT 09:46 → CT 09:47
PROVIDERS: ATTEND Internal Medicine Cardiovascular Disease
DX: I48.0 Paroxysmal atrial fibrillation (principal)
CPT/HCPCS: 71275; 82565; Q9967

== ENCOUNTER 2023-01-03 11:26 | Inpatient (IN) | payer MEDICARE, OTHER ==
[2023-01-03] MEDS ORDERED: cefTRIAXone (ROCEPHIN) 2 GM VIAL ONE (12:07)
[2023-01-03] MEDS ORDERED: Azithromycin 500 MG VIAL ONE (12:08)
[2023-01-03 12:17] LABS: #Basophils 0.1 thou/uL (0.0-0.2); #Eosinphils 0.1 thou/uL (0.0-0.7); #Monocytes 0.7 thou/uL (0.11-0.59); #Neutrophils 5.1 thou/uL (1.40-6.50); %Basophils 1.2 % (0.0-1.0); %Eosinophils 0.9 % (0.0-10.0); %Lymphocytes 23.4 % (21.0-51.0); %Monocytes 9.5 % (0.0-10.0); %Neutrophils 64.6 % (42.0-75.0); Hemoglobin 14.4 g/dL (14.0-18.0); Mean Corpuscular Hemoglobin 32.4 pg (27.0-31.0); Mean Corpuscular Volume 101.1 fl (78.0-98.0); Mean Platelet Volume 9.4 fL (7.4-10.4); Platelet Count 245 10x3/uL (130-400); RBC Distribution Width 13.2 % (11.5-14.5); Red Blood Cell (RBC) Count 4.45 mill/uL (4.70-6.10); White Blood Cell (WBC) Count 7.8 10x3/uL (4.8-10.8)
[2023-01-03 12:41] LABS: ALT (SGPT) 19 U/L (8-55); AST (SGOT) 22 U/L (5-34); Albumin 3.9 g/dL (3.4-4.8); Alkaline Phosphatase 86 U/L (40-110); Anion Gap 12 mmol/L (10-20); BUN (Urea Nitrogen) 17 mg/dL (8.4-25.7); Bilirubin, Total 0.8 mg/dL (0.2-1.2); Calc. Creatinine Clearance 0 mL/min (70-130); Calcium 9.2 mg/dL (7.8-10.44); Carbon Dioxide 21 mmol/L (23-31); Chloride 108 mmol/L (98-107); Estimated GFR 77; Globulin 3.1 g/dL (2.4-3.5); Glucose 106 mg/dL (83-110); Potassium 4.4 mmol/L (3.5-5.1); Sodium 137 mmol/L (136-145)
[2023-01-03 12:45] LABS: Troponin I 0.025 ng/mL (< 0.028)
[2023-01-03 13:09] LABS: SARS-CoV-2 NAA Rapid Test Not Detected (NotDetected)
[2023-01-03 13:42] LABS: Bacteria/HPF 1+ HPF (None Seen); Bilirubin Negative (Negative); Blood, Urine Negative (Negative); CAUTI Indications for Culture Alt mental st,lethar; Calcium Oxalate Crystals Rare HPF (None Seen); Clarity Clear (Clear); Glucose, Urine (Dipstick) Normal (Negative); Ketone, Urine Negative (Negative); Leukocyte 250 Leu/uL (Negative); Nitrite Negative (Negative); Protein, Urine (Dipstick) 30 mg/dL (Neg-Trace); RBC/HPF 0-3 HPF (0-3); Specific Gravity, Urine 1.023 (1.002-1.036); Squamous Epithelial 0-3 HPF (0-3); WBC/HPF 21-50 HPF (0-3); pH, Urine 6.5 (5.0-9.0)
[2023-01-03 13:43] LABS: Urine Culture Reflex Yes Yes
[2023-01-03] MEDS ORDERED: Ondansetron PF 4 MG/2 ML Vial IVP PRN (15:46)
[2023-01-03] MEDS ORDERED: Acetaminophen 325 MG TAB PO PRN (15:46)
[2023-01-03] MEDS ORDERED: Senokot S 8.6-50 MG TAB PO PRN (15:46)
[2023-01-03] MEDS ORDERED: Guaifenesin DM 100-10/5 ML UDCUP PO PRN (15:46)
[2023-01-03] MEDS ORDERED: Calcium Carbonate 500 MG ChewTAB PO PRN (15:46)
[2023-01-03] MEDS ORDERED: Furosemide 20 MG/2 ML VIAL SLOW IVP SCH (16:00)
[2023-01-03 16:44] LABS: Troponin I 0.011 ng/mL (< 0.028)
[2023-01-03 18:23] VITALS: BMI 30.4
[2023-01-03] MEDS: dilTIAZem 125 MG in Sodium Chloride 0.9% 100 ML IVPB SCH (19:04)
[2023-01-03] MEDS: Atorvastatin Calcium 40 MG TAB PO SCH ×2 (20:37→20:38)
[2023-01-03] MEDS: Flecainide 50 MG TAB PO SCH (20:37)
[2023-01-03] MEDS: Apixaban 5 MG TAB PO SCH (20:38)
[2023-01-04 05:32] LABS: #Basophils 0.1 thou/uL (0.0-0.2); #Eosinphils 0.1 thou/uL (0.0-0.7); #Neutrophils 7.9 thou/uL (1.40-6.50); %Basophils 0.6 % (0.0-1.0); %Eosinophils 0.5 % (0.0-10.0); %Lymphocytes 20.5 % (21.0-51.0); Hematocrit 43.8 % (42.0-52.0); Hemoglobin 14.3 g/dL (14.0-18.0); Mean Corpuscular HGB CONC 32.6 g/dL (32.0-36.0); Mean Corpuscular Hemoglobin 32.5 pg (27.0-31.0); Mean Corpuscular Volume 99.5 fl (78.0-98.0); Mean Platelet Volume 9.5 fL (7.4-10.4); Platelet Count 280 10x3/uL (130-400); RBC Distribution Width 13.2 % (11.5-14.5); White Blood Cell (WBC) Count 11.4 10x3/uL (4.8-10.8)
[2023-01-04] MEDS: Furosemide 20 MG/2 ML VIAL SLOW IVP SCH ×2 (05:40→13:21)
[2023-01-04 05:48] LABS: ALT (SGPT) 19 U/L (8-55); AST (SGOT) 17 U/L (5-34); Albumin 3.9 g/dL (3.4-4.8); Alkaline Phosphatase 83 U/L (40-110); Anion Gap 15 mmol/L (10-20); BUN (Urea Nitrogen) 14 mg/dL (8.4-25.7); Bilirubin, Total 0.6 mg/dL (0.2-1.2); Calc. Creatinine Clearance 83 mL/min (70-130); Calcium 9.2 mg/dL (7.8-10.44); Carbon Dioxide 24 mmol/L (23-31); Chloride 104 mmol/L (98-107); Estimated GFR 87; Globulin 3.4 g/dL (2.4-3.5); Glucose 101 mg/dL (83-110); Potassium 3.7 mmol/L (3.5-5.1); Protein, Total 7.3 g/dL (5.8-8.1); Sodium 139 mmol/L (136-145)
[2023-01-04] MEDS: Apixaban 5 MG TAB PO SCH ×2 (08:15→21:13)
[2023-01-04] MEDS: Flecainide 50 MG TAB PO SCH ×2 (08:15→21:13)
[2023-01-04] MEDS ORDERED: cefTRIAXone\\ROCEPHIN 1 GM in Sodium Chloride 0.9% 100 ML IVPB SCH (09:00)
[2023-01-04] MEDS ORDERED: Lisinopril/Hydrochlorothiazide 20/25 mg Tablet PO SCH (09:00)
[2023-01-04] MEDS ORDERED: dilTIAZem CD 180 MG CAP PO SCH (09:00)
[2023-01-04] MEDS ORDERED: Azithromycin 500 MG in Sodium Chloride 0.9% 250 ML 250 ML IVPB SCH (10:00)
[2023-01-04] MEDS: dilTIAZem 125 MG in Sodium Chloride 0.9% 100 ML IVPB SCH (14:25)
[2023-01-04] MEDS: Furosemide 40 MG/4 ML VIAL SLOW IVP SCH (17:02)
[2023-01-04] MEDS: Atorvastatin Calcium 40 MG TAB PO SCH (21:13)
[2023-01-04] MEDS ORDERED: Carvedilol 6.25 MG TAB PO SCH (23:00)
[2023-01-05] MEDS: Furosemide 40 MG/4 ML VIAL SLOW IVP SCH ×2 (00:43→10:20)
[2023-01-05 04:33] LABS: #Basophils 0.1 thou/uL (0.0-0.2); #Eosinphils 0.1 thou/uL (0.0-0.7); #Neutrophils 7.9 thou/uL (1.40-6.50); %Basophils 0.6 % (0.0-1.0); %Eosinophils 0.7 % (0.0-10.0); %Lymphocytes 15.6 % (21.0-51.0); %Monocytes 9.7 % (0.0-10.0); %Neutrophils 73.1 % (42.0-75.0); Hematocrit 44.1 % (42.0-52.0); Hemoglobin 14.7 g/dL (14.0-18.0); Mean Corpuscular HGB CONC 33.3 g/dL (32.0-36.0); Mean Corpuscular Hemoglobin 32.7 pg (27.0-31.0); Mean Platelet Volume 9.5 fL (7.4-10.4); Platelet Count 251 10x3/uL (130-400); RBC Distribution Width 13.2 % (11.5-14.5); White Blood Cell (WBC) Count 10.8 10x3/uL (4.8-10.8)
[2023-01-05 04:54] LABS: Anion Gap 15 mmol/L (10-20); BUN (Urea Nitrogen) 14 mg/dL (8.4-25.7); Calc. Creatinine Clearance 77 mL/min (70-130); Calcium 9.1 mg/dL (7.8-10.44); Carbon Dioxide 25 mmol/L (23-31); Chloride 97 mmol/L (98-107); Estimated GFR 82; Glucose 118 mg/dL (83-110); Magnesium 1.8 mg/dL (1.6-2.6); Sodium 134 mmol/L (136-145)
[2023-01-05] MEDS ORDERED: Digoxin 0.5 MG/2 ML AMP SLOW IVP SCH ×2 (08:30→10:30)
[2023-01-05] MEDS: Carvedilol 6.25 MG TAB PO SCH ×2 (09:00→18:13)
[2023-01-05] MEDS: Aspirin 81 mg Enteric Coated Tablet PO SCH (09:00)
[2023-01-05] MEDS: Amiodarone 200 MG TAB PO SCH (09:00)
[2023-01-05] MEDS ORDERED: dilTIAZem CD 240 MG CAP PO SCH (09:00)
[2023-01-05] MEDS: Empagliflozin 10 MG TAB PO SCH (09:03)
[2023-01-05] MEDS: Apixaban 5 MG TAB PO SCH ×2 (09:03→20:38)
[2023-01-05] MEDS ORDERED: Digoxin 0.25 MG TAB PO SCH (12:30)
[2023-01-05] MEDS: Sacubitril 24MG/Valsartan 26 MG TAB PO SCH (20:38)
[2023-01-05] MEDS: Atorvastatin Calcium 40 MG TAB PO SCH (20:38)
[2023-01-06 04:20] LABS: #Basophils 0.1 thou/uL (0.0-0.2); #Eosinphils 0.3 thou/uL (0.0-0.7); #Neutrophils 7.3 thou/uL (1.40-6.50); %Basophils 0.8 % (0.0-1.0); %Eosinophils 2.3 % (0.0-10.0); %Monocytes 8.8 % (0.0-10.0); %Neutrophils 65.7 % (42.0-75.0); Hematocrit 44.7 % (42.0-52.0); Hemoglobin 14.8 g/dL (14.0-18.0); Mean Corpuscular HGB CONC 33.1 g/dL (32.0-36.0); Mean Corpuscular Hemoglobin 32.4 pg (27.0-31.0); Mean Corpuscular Volume 97.8 fl (78.0-98.0); Mean Platelet Volume 10.6 fL (7.4-10.4); Platelet Count 208 10x3/uL (130-400); RBC Distribution Width 13.2 % (11.5-14.5); Red Blood Cell (RBC) Count 4.57 mill/uL (4.70-6.10); White Blood Cell (WBC) Count 11.1 10x3/uL (4.8-10.8)
[2023-01-06 04:43] LABS: Anion Gap 15 mmol/L (10-20); BUN (Urea Nitrogen) 22 mg/dL (8.4-25.7); Calc. Creatinine Clearance 59 mL/min (70-130); Calcium 9.7 mg/dL (7.8-10.44); Carbon Dioxide 27 mmol/L (23-31); Chloride 101 mmol/L (98-107); Estimated GFR 65; Glucose 96 mg/dL (83-110); Magnesium 2.1 mg/dL (1.6-2.6); Potassium 3.3 mmol/L (3.5-5.1); Sodium 140 mmol/L (136-145)
[2023-01-06] MEDS ORDERED: Spironolactone 25 MG TAB PO SCH (08:00)
[2023-01-06] MEDS: Aspirin 81 mg Enteric Coated Tablet PO SCH (08:09)
[2023-01-06] MEDS: Apixaban 5 MG TAB PO SCH (08:10)
[2023-01-06] MEDS: Carvedilol 6.25 MG TAB PO SCH (08:10)
[2023-01-06] MEDS: Sacubitril 24MG/Valsartan 26 MG TAB PO SCH (08:10)
[2023-01-06] MEDS: Empagliflozin 10 MG TAB PO SCH (08:10)
[2023-01-06] MEDS: Amiodarone 200 MG TAB PO SCH (08:11)
[2023-01-06] MEDS ORDERED: Digoxin 0.25 MG TAB PO SCH (09:00)
[2023-01-06] MEDS ORDERED: Potassium Chloride 20 MEQ TAB PO SCH (13:45)
[2023-01-06 15:17] VITALS: BP 160/73; TEMP 97.7
[2023-01-07] MEDS ORDERED: Digoxin 0.25 MG TAB PO SCH (09:00)
== END 2023-01-06 15:41 | disposition home or self-care (01) | DRG 291 ==
LOC: ERS 11:26 → SUATTDRO 11:26 → 2NO 16:07
PROVIDERS: ADMIT Internal Medicine; ATTEND Internal Medicine Critical Care Medicine
DX: I11.0 Hypertensive heart disease with heart failure (principal); I50.23 Acute on chronic systolic (congestive) heart failure; I48.19 Other persistent atrial fibrillation; I48.92 Unspecified atrial flutter; I31.39 Other pericardial effusion (noninflammatory); Z20.822 Contact with and (suspected) exposure to COVID-19; E78.5 Hyperlipidemia, unspecified; I45.10 Unspecified right bundle-branch block; Z79.899 Other long term (current) drug therapy; Z79.01 Long term (current) use of anticoagulants; I69.322 Dysarthria following cerebral infarction; Z90.49 Acquired absence of other specified parts of digestive tract; Z79.82 Long term (current) use of aspirin; I69.320 Aphasia following cerebral infarction; I42.8 Other cardiomyopathies; I08.1 Rheumatic disorders of both mitral and tricuspid valves
CPT/HCPCS: 36415; 36416; 71045; 71046; 80048; 80053; 81001; 83605; 83735; 83880; 84145; 84443; 84484; 85025; 87040; 87070; 87086; 93005; 93306; 96365; 96368; 97139; J0456; J0696; J1160; J1940; J3490

== ENCOUNTER 2024-06-17 12:35 | Outpatient (CLI) | payer MEDICARE, OTHER | END 2024-06-17 12:36 | disposition home or self-care (01) | LOC: BICRAD 12:35 | PROVIDERS: ATTEND Internal Medicine Cardiovascular Disease | DX: I48.0 Paroxysmal atrial fibrillation (principal); J94.8 Other specified pleural conditions; Z92.29 Personal history of other drug therapy; Z95.810 Presence of automatic (implantable) cardiac defibrillator; Z87.81 Personal history of (healed) traumatic fracture | CPT/HCPCS: 71046 ==